=== PATIENT | male | born 1985 | race Caucasian/White ===

== ENCOUNTER 2018-03-07 08:02 | Inpatient (IN) | payer SELFPAY ==
[2018-03-07 08:41] LABS: ADD MAN DIFF? NO
[2018-03-07 08:45] LABS: BASOPHIL # 0.1 10^3/ul (0.0-0.1); BASOPHILS % 0.5 % (0.0-2.0); EOSINOPHILS # 0.1 10^3/ul (0.0-0.5); EOSINOPHILS % 0.7 % (0.0-7.0); HEMATOCRIT 49.9 % (42.0-52.0); HEMOGLOBIN 17.1 g/dl (14.0-18.0); LYMPHOCYTES # 2.5 10^3/ul (0.8-2.9); LYMPHOCYTES % 24.3 % (15.0-51.0); MEAN CORPUSCULAR HEMOGLOBIN 30.4 pg (29.0-33.0); MEAN CORPUSCULAR HGB CONC 34.3 g/dl (32.0-37.0); MEAN CORPUSCULAR VOLUME 88.8 fl (82.0-101.0); MEAN PLATELET VOLUME 9.2 fl (7.4-10.4); MONOCYTE # 0.9 10^3/ul (0.3-0.9); MONOCYTES % 8.4 % (0.0-11.0); NEUTROPHIL # 6.8 10^3/ul (1.6-7.5); NEUTROPHILS % 65.6 % (39.0-77.0); PLATELET COUNT 270 10^3/UL (140-415); RED BLOOD COUNT 5.62 10^6/ul (4.70-6.10); RED CELL DISTRIBUTION WIDTH 12.5 % (11.5-14.5)
[2018-03-07 08:45] LABS: WHITE BLOOD COUNT 10.3 10^3/ul (4.8-10.8)
[2018-03-07] MEDS: LORAZEPAM 2 MG INJ IV ×2 (08:51→09:05)
[2018-03-07] MEDS ORDERED: DILTIAZEM 50 MG INJ IV (09:00)
[2018-03-07 09:02] LABS: ANION GAP 17 (8-16); BLOOD UREA NITROGEN 12 mg/dl (7-20); CALCIUM 9.6 mg/dl (8.4-10.2); CARBON DIOXIDE 25 mmol/L (21-31); CHLORIDE 103 mmol/L (97-110); GLUCOSE 132 mg/dl (70-220); POTASSIUM 3.7 mmol/L (3.5-5.1); SODIUM 141 mmol/L (135-144)
[2018-03-07] MEDS: DILTIAZEM 25 MG INJ IV (09:08)
[2018-03-07 09:15] LABS: TROPONIN-I < 0.012 ng/ml (0.000-0.120)
[2018-03-07] MEDS: DILTIAZEM-D5W 125MG/125ML DRIP 125 ML IV (09:31)
[2018-03-07] MEDS ORDERED: DOCUSATE SODIUM 100 MG CAP PO (11:00)
[2018-03-07] MEDS ORDERED: ACETAMINOPHEN 325 MG TAB PO ×2 (11:00)
[2018-03-07] MEDS ORDERED: BISACODYL (EC) 5 MG TAB PO (11:00)
[2018-03-07] MEDS ORDERED: LORAZEPAM 0.5 MG TAB PO (11:00)
[2018-03-07] MEDS ORDERED: MAGNESIUM HYDROXIDE 30ML CUP PO (11:00)
[2018-03-07] MEDS ORDERED: HYDROCODONE/APAP (5/325) TAB PO (11:00)
[2018-03-07] MEDS ORDERED: NACL 0.9% 3 ML SYG IV (11:00)
[2018-03-07] MEDS ORDERED: ONDANSETRON 4 MG INJ IV ×2 (11:00)
[2018-03-07] MEDS: SOD CHLORIDE 0.9% 1,000 ML IV (13:03)
[2018-03-07] MEDS: NICOTINE (21 MG/24 HR) PATCH TRANSDERM (13:24)
[2018-03-07] MEDS: HEPARIN 5,000 UNIT/0.5 ML VIAL SC ×2 (13:28→21:29)
[2018-03-07 15:14] LABS: CREATINE KINASE 89 IU/L (23-200)
[2018-03-07 15:26] LABS: CK INDEX 1.1; TROPONIN-I < 0.010 ng/ml (0.000-0.120)
[2018-03-07 15:37] LABS: CK-MB 0.96 ng/ml (0.0-2.4)
[2018-03-07 21:40] LABS: CREATINE KINASE 79 IU/L (23-200)
[2018-03-07 21:54] LABS: TROPONIN-I < 0.010 ng/ml (0.000-0.120)
[2018-03-07 21:55] LABS: CK-MB 0.81 ng/ml (0.0-2.4)
[2018-03-08] MEDS: PANTOPRAZOLE (EC) 40 MG TAB PO (06:20)
[2018-03-08] MEDS: HEPARIN 5,000 UNIT/0.5 ML VIAL SC (06:21)
[2018-03-08 08:43] LABS: ADD MAN DIFF? NO
[2018-03-08 08:45] LABS: BASOPHIL # 0.1 10^3/ul (0.0-0.1); BASOPHILS % 0.8 % (0.0-2.0); EOSINOPHILS # 0.1 10^3/ul (0.0-0.5); EOSINOPHILS % 1.7 % (0.0-7.0); HEMATOCRIT 48.1 % (42.0-52.0); HEMOGLOBIN 16.3 g/dl (14.0-18.0); LYMPHOCYTES # 1.8 10^3/ul (0.8-2.9); LYMPHOCYTES % 24.5 % (15.0-51.0); MEAN CORPUSCULAR HEMOGLOBIN 30.6 pg (29.0-33.0); MEAN CORPUSCULAR HGB CONC 33.9 g/dl (32.0-37.0); MEAN CORPUSCULAR VOLUME 90.2 fl (82.0-101.0); MEAN PLATELET VOLUME 9.4 fl (7.4-10.4); MONOCYTE # 0.7 10^3/ul (0.3-0.9); MONOCYTES % 9.6 % (0.0-11.0); NEUTROPHIL # 4.7 10^3/ul (1.6-7.5); NEUTROPHILS % 62.9 % (39.0-77.0); PLATELET COUNT 270 10^3/UL (140-415); RED BLOOD COUNT 5.33 10^6/ul (4.70-6.10); RED CELL DISTRIBUTION WIDTH 12.6 % (11.5-14.5)
[2018-03-08 08:45] LABS: WHITE BLOOD COUNT 7.5 10^3/ul (4.8-10.8)
[2018-03-08] MEDS: NICOTINE (21 MG/24 HR) PATCH TRANSDERM (08:54)
[2018-03-08 09:09] LABS: ALBUMIN 4.1 g/dl (3.3-4.9); ALBUMIN/GLOBULIN RATIO 1.46; ALKALINE PHOSPHATASE 75 IU/L (42-121); ANION GAP 15 (8-16); ASPARTATE AMINO TRANSFERASE 58 IU/L (15-46); BILIRUBIN,TOTAL 0.8 mg/dl (0.2-1.3); BLOOD UREA NITROGEN 13 mg/dl (7-20); CALCIUM 9.2 mg/dl (8.4-10.2); GLUCOSE 96 mg/dl (70-220)
[2018-03-08 09:22] LABS: ALANINE AMINOTRANSFERASE 104 IU/L (13-69); BILIRUBIN,INDIRECT 0.8 mg/dl (0-1.1); CARBON DIOXIDE 26 mmol/L (21-31); CHLORIDE 103 mmol/L (97-110); CREATININE 0.69 mg/dl (0.61-1.24); MAGNESIUM 2.1 mg/dl (1.7-2.5); POTASSIUM 4.2 mmol/L (3.5-5.1); SODIUM 140 mmol/L (135-144); TOTAL PROTEIN 6.9 g/dl (6.1-8.1)
== END 2018-03-08 14:23 | disposition home or self-care (01) | DRG 310 ==
LOC: E/R 08:02 → MS4 10:47
DX: I48.0 Paroxysmal atrial fibrillation (principal); F15.10 Other stimulant abuse, uncomplicated; F41.9 Anxiety disorder, unspecified; F17.210 Nicotine dependence, cigarettes, uncomplicated; F10.20 Alcohol dependence, uncomplicated
CPT/HCPCS: 36415; 71045; 80048; 80053; 82550; 82553; 83735; 84484; 85025; 93005; 93306; 96365; 96375; 99285-25